=== PATIENT | male | born 2005 | race Two or more races ===

== ENCOUNTER 2023-11-22 11:51 | Emergency (ER) | payer OTHER ==
[~2023-11-22] VITALS: Ht 167.6 cm; Wt 59.9 kg
[2023-11-22] MEDS ORDERED: CEFAZOLIN SODIUM 1,000 MG VIAL IV STA (12:42)
[2023-11-22] MEDS ORDERED: 0.9 % SODIUM CHLORIDE 1,000 ML IV SCH (12:45)
[2023-11-22] MEDS ORDERED: KETOROLAC TROMETHAMINE 30 MG VIAL IU ONE (13:45)
== END 2023-11-22 16:53 | disposition designated cancer center or children's hospital (05) ==
LOC: ER 11:52 → EMR PED 11:52
DX: S69.82XA Other specified injuries of left wrist, hand and finger(s), initial encounter (principal); X58.XXXA Exposure to other specified factors, initial encounter; Y93.89 Activity, other specified; Y92.69 Other specified industrial and construction area as the place of occurrence of the external cause; Y99.0 Civilian activity done for income or pay